=== PATIENT | female | born 1950 | race Two or more races ===

== ENCOUNTER 2024-04-03 09:45 | Inpatient (IN) | payer OTHER ==
[~2024-04-03] VITALS: Ht 198.1 cm; Wt 75.7 kg
[2024-04-03] MEDS ORDERED: FARXIGA10 MG PO (10:52)
[2024-04-03] MEDS ORDERED: HYDRALAZINE HCL50 MG PO (10:53)
[2024-04-03] MEDS ORDERED: DIOVAN320 MG PO (10:54)
[2024-04-03] MEDS ORDERED: LIPITOR20 MG (10:55)
[2024-04-03] MEDS ORDERED: ECOTRIN81 MG PO (10:55)
[2024-04-03] MEDS ORDERED: TENORMIN50 M1 PO (10:55)
[2024-04-03 10:56] VITALS: BP 216/69
[2024-04-03 11:33] LABS: URINE BILIRRUBIN NEGATIVE (NEGATIVE); URINE BLOOD SMALL; URINE KETONE NEGATIVE (NEGATIVE); URINE LEUKOCYTE MODERATE; URINE NITRATE NEGATIVE; URINE PROTEIN 30 (NEGATIVE); URINE UROBILINOGEN 0.2 E.U./dl
[2024-04-03 11:35] LABS: HEMATOCRIT 41.4 % (36.0-45.00); HEMOGLOBIN 14.1 g/dL (12.0-15.00); MEAN CELL VOLUME 88.3 fL (80.00-100.00); PLATELET COUNT 200 K/uL (150-450); RED BLOOD COUNT 4.68 M/uL (4.00-6.00); RED CELL DISTRIBUTION WIDTH 14.9 % (11.5-14.5)
[2024-04-03 11:53] LABS: INR 1.07; PARTIAL THROMBOPLASTIN TIME 27.2 SECONDS (22.0-34.0); PROTHROMBIN TIME 11.6 SECONDS (9.0-11.5)
[2024-04-03 12:11] LABS: URINE APPEARANCE SL CLOUDY; URINE COLOR YELLOW; URINE GLUCOSE >=1000 MG/DL (NEGATIVE)
[2024-04-03 12:13] LABS: URINE BACTERIA MANY; URINE CRYSTALS FEW /HPF; URINE MUCUS SCANT; URINE WBC 41-50 /hpf
[2024-04-03 12:33] LABS: ALBUMIN 3.9 gm/dL (3.4-5.0); BILIRUBIN TOTAL 0.91 mg/dL (0.3-1.2); CALCIUM 9.7 mg/dL (8.5-10.1); CREATININE SERUM 1.08 mg/dL (0.55-1.02); GFR 49.59; GLOBULINA 4.1 G/DL (2.4-3.5); POTASSIUM 4.28 mEq/L (3.5-5.1)
[2024-04-08 13:19] VITALS: BP 150/90
[2024-04-11] MEDS ORDERED: levoFLOXacin IN DEXTROSE 5 % 500MG/100ML PIGGYBAG IV ONE (14:00)
[2024-04-11] MEDS ORDERED: METRONIDAZOLE/SODIUM CHLORIDE 500 MG/100 ML PIGGYBACK IV ONE (14:00)
[2024-04-11] MEDS ORDERED: DEXTROSE 50 % IN WATER 0.5 G/ML DISP.SYRIN IV PRN (15:30)
[2024-04-11] MEDS ORDERED: OxyCODONE HCL 5 MG TABLET (ROXICODONE) PO PRN (15:30)
[2024-04-11] MEDS ORDERED: MORPHINE SULFATE 4 MG/ML CARTRIDGE IV PRN (15:30)
[2024-04-11] MEDS ORDERED: ONDANSETRON HCL 2 MG/ML VIAL IV PRN (15:30)
[2024-04-11] MEDS ORDERED: 0.9 % SODIUM CHLORIDE 1,000 ML IV SCH (15:30)
[2024-04-11] MEDS ORDERED: HYOSCYAMINE SULFATE 0.125 MG TAB.SUBL SL SCH (17:00)
[2024-04-11] MEDS ORDERED: GABAPENTIN 300 MG CAPSULE PO SCH (17:00)
[2024-04-11] MEDS ORDERED: POLYETHYLENE GLYCOL 3350 17 GM BLIST.PACK PO SCH (17:00)
[2024-04-11 18:26] LABS: HEMATOCRIT 37.6 % (36.0-45.00); HEMOGLOBIN 12.6 g/dL (12.0-15.00); MEAN CELL VOLUME 89.5 fL (80.00-100.00); MEAN CORPUSCULAR HGB CONC 33.5 g/dl (32.0-36.0); PLATELET COUNT 169 K/uL (150-450); RED CELL DISTRIBUTION WIDTH 14.8 % (11.5-14.5)
[2024-04-11] MEDS ORDERED: MORPHINE SULFATE 4 MG/ML VIAL IV ONE (18:30)
[2024-04-11 19:11] LABS: ALBUMIN 3.1 gm/dL (3.4-5.0); CALCIUM 9.1 mg/dL (8.5-10.1); CREATININE SERUM 1.31 mg/dL (0.55-1.02); GFR 39.69; MAGNESIUM 2.1 mg/dL (1.8-2.4); PHOSPHOROUS 4.4 mg/dL (2.5-4.9); POTASSIUM 4.46 mEq/L (3.5-5.1)
[2024-04-11 19:25] VITALS: BP 153/67; O2SAT 95
[2024-04-11] MEDS ORDERED: ACETAMINOPHEN 500 MG GEL..CAP PO SCH (20:00)
[2024-04-11] MEDS ORDERED: CELECOXIB 200 MG CAPSULE PO SCH (21:00)
[2024-04-11] MEDS ORDERED: FAMOTIDINE/PF 20 MG/2 ML VIAL IV PUSH SCH (21:00)
[2024-04-12 01:18] VITALS: BP 150/70; O2SAT 98
[2024-04-12 06:16] LABS: HEMATOCRIT 34.3 % (36.0-45.00); HEMOGLOBIN 11.7 g/dL (12.0-15.00); MEAN CELL VOLUME 89.2 fL (80.00-100.00); MEAN CORPUSCULAR HEMOGLOBIN 30.4 pg (27.00-32.0); MEAN CORPUSCULAR HGB CONC 34.1 g/dl (32.0-36.0); PLATELET COUNT 152 K/uL (150-450); RED BLOOD COUNT 3.84 M/uL (4.00-6.00)
[2024-04-12 06:37] LABS: ALBUMIN 2.7 gm/dL (3.4-5.0); CALCIUM 8.4 mg/dL (8.5-10.1); CREATININE SERUM 1.17 mg/dL (0.55-1.02); GFR 45.22; MAGNESIUM 1.8 mg/dL (1.8-2.4); PHOSPHOROUS 4.4 mg/dL (2.5-4.9); POTASSIUM 4.18 mEq/L (3.5-5.1)
[2024-04-12 08:00] VITALS: BP 166/72; O2SAT 100
[2024-04-12] MEDS ORDERED: ATENOLOL 50 MG TABLET PO NR (14:30)
[2024-04-12 16:00] VITALS: BP 154/70; O2SAT 100
[2024-04-12] MEDS ORDERED: hydrALAZINE HCL 50 MG TABLET PO SCH (17:00)
[2024-04-12] MEDS ORDERED: ATORVASTATIN CALCIUM 10 MG TABLET PO SCH (17:00)
[2024-04-12] MEDS ORDERED: ENOXAPARIN SODIUM 40 MG/0.4 ML SYRINGE SUBCUTANEO SCH (17:00)
[2024-04-13 01:55] VITALS: BP 126/67; O2SAT 95
[2024-04-13 08:00] VITALS: BP 160/70; O2SAT 98
[2024-04-13] MEDS ORDERED: ENOXAPARIN SODIUM 40 MG/0.4 ML SYRINGE SUBCUTANEO SCH (09:00)
[2024-04-13] MEDS ORDERED: ATENOLOL 50 MG TABLET PO SCH (09:00)
[2024-04-13] MEDS ORDERED: PATIENTS OWN MEDICATION (MEDICAMENTO EN PISO) PO SCH (09:00)
[2024-04-13 15:43] VITALS: BP 100/67; O2SAT 96
[2024-04-14 01:12] VITALS: BP 135/68; O2SAT 96
[2024-04-14 08:00] VITALS: BP 160/50; O2SAT 95
[2024-04-14] MEDS ORDERED: HYOSCYAMINE0.125 M1 SL (14:19)
[2024-04-14] MEDS ORDERED: CELEBREX200MG PO (14:19)
== END 2024-04-14 15:05 | disposition home or self-care (01) | DRG 330 ==
LOC: SURG 04-11 07:00 → O/R 04-11 09:10 → SURH 04-11 09:10 → SURG 04-11 09:45 → SURH 04-11 16:10
PROVIDERS: ADMIT Surgery; ATTEND Surgery
PROC: 0DBP4ZZ Excision of Rectum, Percutaneous Endoscopic Approach (ICD-10-PCS; 2024-04-11)
PROC: 0UQG4ZZ Repair Vagina, Percutaneous Endoscopic Approach (ICD-10-PCS; 2024-04-11)
PROC: 0DJD8ZZ Inspection of Lower Intestinal Tract, Via Natural or Artificial Opening Endoscopic (ICD-10-PCS; 2024-04-11)
PROC: 0UC Female Reproductive System, Extirpation (ICD-10-PCS; 2024-04-11)
PROC: 0DTN4ZZ Resection of Sigmoid Colon, Percutaneous Endoscopic Approach (ICD-10-PCS; principal; 2024-04-11 07:00)
DX: K57.20 Diverticulitis of large intestine with perforation and abscess without bleeding (principal); N82.3 Fistula of vagina to large intestine; R59.0 Localized enlarged lymph nodes